=== PATIENT | male | born 1970 | race Caucasian/White ===

== ENCOUNTER 2016-08-04 20:01 | Emergency (ER) | payer SELFPAY ==
[2016-08-04 20:21] VITALS: BMI 35.8
[2016-08-04] MEDS ORDERED: NS 1,000 ML IV ONE (22:16)
[2016-08-04] MEDS ORDERED: Levofloxacin 750 mg/150 ml D5W 750 MG/150 ML RTU IV ONE (22:17)
[2016-08-04] MEDS ORDERED: HYDROmorphone 1 MG INJECTION IV ONE ×2 (22:20→23:19)
--- NOTE | 2016-08-04 22:22 | EDPRACDOC ---
- General Information Chief Complaint: Bleeding (Rectal &/or other) Stated Complaint: RECTAL BLEEDING Time Seen by Provider: 08/04/16 22:13 Mode Of Arrival: Car Home Medications: Home Medications Sertraline HCl [Zoloft] 100 mg PO DAILY 09/18/14 Ibuprofen Tablet [Advil] 800 mg PO Q8H PRN 06/04/16 Lactobacillus Combination No.4 [Probiotic] 1 each PO BID PRN #20 capsule Hydrocodone Bit/Acetaminophen [Lortab 5/325] 1 tab PO Q4-6H PRN #15 tab Levofloxacin [Levaquin] 750 mg PO DAILY #7 tab 06/25/16 Metronidazole [Flagyl] 500 mg PO BID #14 tab 06/25/16 Naproxen Sodium 550 mg PO BID 06/25/16 Ondansetron HCl [Zofran] 4 mg PO Q8H PRN #15 tab 06/25/16 Ciprofloxacin HCl [Cipro] 500 mg PO BID #20 tab 08/04/16 Oxycodone HCl/Acetaminophen [Percocet 5-325 mg Tablet] 1 each PO Q4 #20 tablet 08/04/16 Promethazine [Phenergan] 25 mg PO Q8H PRN #30 tab 08/04/16 Allergies/Adverse Reactions: Allergies Allergy/AdvReac Type Severity Reaction Status Date / Time No Known Allergies Allergy Verified 08/04/16 20:15 - History of Present Illness Onset: a week and a half HPI: PATIENT PRESENTS C/O GENERAL ABDOMINAL PAIN WITH BLOODY STOOL. NO FEVER. NO N/V Pain Location: Reports: Diffuse, LLQ Pain Context: Reports: Spontaneous Pain Severity: Mild Pain Quality: Reports: Aching Pain Radiation: Reports: No Radiation Modifying Factors: improves with: Nothing Oral Intake: Normal Urinary Output: Normal ED Past Medical History - History Reviewed Yes Nurses notes reviewed and agree except as marked Travel Outside of [place] in the Last 3 Months?: No - Patient Medical History Musculoskeletal History: Reports: Arthritis Psychological History: Reports: Depression, Anxiety Systemic History: Reports: Cancer (melanoma) Surgical History: Reports: Cholecystectomy - Family Medical History Reports: Hypertension (Mom and oldest brother), Diabetes (maternal grandmother & Mom), Cancer (Father-small cell lung Ca- Grandmother breast & colon Ca-GF with leukemia) - Social Medical History Smoking Status: Heavy tobacco smoker (5 or more cigarettes/day or daily pipe/ cigar) ETOH: None Substance Abuse: None Lives With: Family Lives In: Home EDM Review of Systems - Review of Systems ROS Negative Except as Marked: Yes All systems reviewed and were negative except as marked Constitutional: No Symptoms Reported. negative: Fever, Chills, Weakness, Fatigue, Loss of Appetite Eyes: No Symptoms Reported. negative: Redness, Blurred Vision, Double Vision, Discharge, Pain, Light Sensitive, Photophobia Ears: No Symptoms Reported. negative: Pain, Hearing Loss, Drainage, Ear Pulling Throat: No Symptoms Reported. negative: Pain, Swelling Nose: No Symptoms Reported. negative: Congestion, Bleeding, Discharge, Injection, Swelling, Deformity, Ecchymosis, Tender, Abrasion, Laceration Mouth: No Symptoms Reported. negative: Pain, Drooling Respiratory: No Symptoms Reported. negative: Cough, Brassy Cough, Barky Cough, Shortness of Breath, Wheezing, Hemoptysis Cardiovascular: No Symptoms Reported. negative: Chest Pain, Palpitations, Syncope, Edema, Orthopnea, PND, Skin Mottling, Cyanosis Gastrointestinal: Pain. negative: Constipation, Diarrhea, Formula Intolerance, Melena, Nausea, Vomiting Genitourinary: No Symptoms Reported. negative: Dysuria, Hematuria, Frequency, Discharge, Bleeding, Testicular Pain, Neurological: No Symptoms Reported. negative: Headache, Dizziness, Seizure, Numbness, Weakness, Speech Difficulty, Gait Difficulty Musculoskeletal: No Symptoms Reported. negative: Neck, Chestwall, Ribs, Back, Shoulder, Arm, Elbow, Forearm, Wrist, Hand, Pelvis, Hip, Femur, Knee, Leg, Ankle , Foot Integumentary: No Symptoms Reported. negative: Itching, Rash, Bruising, Wound Allergic/Immunologic: No Symptoms Reported. negative: Hives, Itching Hematologic: No Symptoms Reported. negative: Lymphadenopathy, Easy Bruising, Easy Bleeding Endocrine: No Symptoms Reported. negative: Weight Gain, Weight Loss Psychiatric: No Symptoms Reported. negative: Anxiety, Depression, Hallucinations, Insomnia, Suicidal - Physical Exam Constitutional: Alert (Awake) Oriented to: Time, Person, Place Last recorded Vital Signs: Last Vital Signs Temp 98.2 F 08/04/16 20:16 Pulse 72 08/04/16 23:41 Resp 18 08/04/16 23:41 BP 141/82 08/04/16 23:41 Pulse Ox 97 08/04/16 23:41 Oxygen Pulse Oxygen Saturation 97 O2 Device Room Air Oxygen Flow Rate Fraction of Inspired Oxygen ( FIO2) - HEENT Head: Normal ( normocephalic) Eye Exam: Normal (PERRL, EOMI, Sclera white) Oropharynx: Normal (Pharynx:Moist without exudate,Gums-no swelling) Tympanic Membrane: Normal ENT EAC: Normal TMJ: Normal Nose: No Symptoms Reported (septum midline) Neck: Normal (FROM, trachea at midline) - Respiratory/Cardiovascular Respiratory: Normal - CTA (BBS clear to auscultation without adventitious sounds ) Cardiovascular: Normal (RRR without murmur, gallop or rub) - GI Auscultation: Normal (NABS) Palpation: Normal (Soft,No rebound or guarding, non distended) Tenderness: Diffuse, Mild Telles's Sign: Negative Rectal Exam: Blood, Heme positive stool. negative: Tarry Stool: Brown - Bladder: Normal - Musculoskeletal Back: Normal (Non-Tender) Extremities: Normal (Normal tone, Pulses 2+ No cyanosis or edema, FROM) - Integumentary Skin: Normal, Warm, Dry Lymphatics: Normal (no adenopathy) - Neurologic Memory Impaired: Normal Motor Function: Normal (Normal tone, Pulses 2+ No cyanosis or edema, FROM) Cranial Nerve: Normal (CN II-X11 intact sensation, strength 5/5) Cerebellar: Normal Mood Description: Normal Perception: Normal - Results 08/04/16 22:40 08/04/16 22:40 WBC 10.2 xk/uL (3.8-10.8) 08/04/16 22:40 RBC 4.73 xM/uL (4.70-6.10) 08/04/16 22:40 Hgb 15.0 g/dL (14.0-18.0) 08/04/16 22:40 Hct 43.6 % (42-52) 08/04/16 22:40 MCV 92 fL (80-94) 08/04/16 22:40 MCH 31.7 pg (27-32) 08/04/16 22:40 MCHC 34.3 g/dl (33-36) 08/04/16 22:40 RDW 14.1 % (11.5-14.5) 08/04/16 22:40 Plt Count 301 xk/uL (130-400) 08/04/16 22:40 MPV 7.6 fL (7.4-10.4) 08/04/16 22:40 Neut % (Auto) 65.1 % (45-76) 08/04/16 22:40 Lymph % (Auto) 23.8 % (17-44) 08/04/16 22:40 Swain % (Auto) 8.6 % (3-10) 08/04/16 22:40 Eos % (Auto) 1.5 % (0-5) 08/04/16 22:40 Baso % (Auto) 1.0 % (0-2) 08/04/16 22:40 Absolute Neuts (auto) 6.63 xk/uL (1.7-8.2) 08/04/16 22:40 Absolute Lymphs (auto) 2.35 xk/uL (0.65-4.75) 08/04/16 22:40 Sodium 138 mEq/L (137-146) 08/04/16 22:40 Potassium 4.0 mEq/L (3.5-5.1) 08/04/16 22:40 Chloride 104 mEq/L (98-107) 08/04/16 22:40 Carbon Dioxide 23 mMOL/L (22-33) 08/04/16 22:40 Anion Gap 15 mEq/L (8-16) 08/04/16 22:40 BUN 17 MG/DL (9-20) 08/04/16 22:40 Creatinine 0.70 MG/DL (0.66-1.25) 08/04/16 22:40 Estimated GFR (MDRD) > 60 mL/min (>=60) 08/04/16 22:40 Glucose 90 MG/DL (70-99) 08/04/16 22:40 Calculated Osmolality 268 MOs/Kg (270-290) L 08/04/16 22:40 Calcium 9.9 MG/DL (8.4-10.2) 08/04/16 22:40 Total Bilirubin 0.9 MG/DL (0.2-1.3) 08/04/16 22:40 AST 27 IU/L (17-59) 08/04/16 22:40 ALT 37 IU/L (21-72) 08/04/16 22:40 Alkaline Phosphatase 85 IU/L (38-126) 08/04/16 22:40 Total Protein 7.6 G/DL (6.3-8.2) 08/04/16 22:40 Albumin 4.7 G/DL (3.5-5.0) 08/04/16 22:40 Lipase 69 U/L (23-300) 08/04/16 22:40 Lab Results 08/04/16 08/04/16 22:40 22:40 WBC 10.2 RBC 4.73 Hgb 15.0 Hct 43.6 MCV 92 MCH 31.7 MCHC 34.3 RDW 14.1 Plt Count 301 MPV 7.6 Neut % (Auto) 65.1 Lymph % (Auto) 23.8 Swain % (Auto) 8.6 Eos % (Auto) 1.5 Baso % (Auto) 1.0 Absolute Neuts (auto) 6.63 Absolute Lymphs (auto) 2.35 Sodium 138 Potassium 4.0 Chloride 104 Carbon Dioxide 23 Anion Gap 15 BUN 17 Creatinine 0.70 Estimated GFR (MDRD) > 60 Glucose 90 Calculated Osmolality 268 L Calcium 9.9 Total Bilirubin 0.9 AST 27 ALT 37 Alkaline Phosphatase 85 Total Protein 7.6 Albumin 4.7 Lipase 69 Decision Time to Discharge: 23:43 - Departure Yes I personally saw and evaluated the patient. Disposition: Home Condition: Good Final Diagnosis: Colitis Instructions: Colitis (ED) Education/Counseling Given To: Patient, Family Member Education/Counseling Given Regarding: Diagnosis, Treatment, Prognosis, Follow Up Referrals: Hammad Mota Jr, [Primary Care Provider] - One Week Tio Segundo MD [Staff Physician] - One Week Prescriptions: Ciprofloxacin HCl [Cipro] 500 mg PO BID #20 tab Oxycodone HCl/Acetaminophen [Percocet 5-325 mg Tablet] 1 each PO Q4 #20 tablet Promethazine [Phenergan] 25 mg PO Q8H PRN #30 tab PRN Reason: Nausea/Vomiting
[2016-08-04] MEDS ORDERED: Pharmacy Review for Metformin - IV Contrast Given SCH (23:00)
[2016-08-04 23:05] LABS: AUTOMATED EOSINOPHIL 1.5 % (0-5); AUTOMATED LYMPH 23.8 % (17-44); AUTOMATED MONOCYTE 8.6 % (3-10); AUTOMATED NEUTROPHIL 65.1 % (45-76); MPV 7.6 fL (7.4-10.4)
[2016-08-04 23:06] LABS: BLOOD UREA NITROGEN 17 MG/DL (9-20); CALCIUM 9.9 MG/DL (8.4-10.2); CALCULATED OSMOLALITY 268 MOs/Kg (270-290); CHLORIDE 104 mEq/L (98-107); GLUCOSE 90 MG/DL (70-99); SODIUM LEVEL 138 mEq/L (137-146); TOTAL PROTEIN 7.6 G/DL (6.3-8.2)
--- NOTE | 2016-08-04 23:36 | DIRPT ---
CLINICAL DATA: 45-year-old male with history of rectal bleeding for the past week and a half. History of melanoma. EXAM: CT ABDOMEN AND PELVIS WITH CONTRAST TECHNIQUE: Multidetector CT imaging of the abdomen and pelvis was performed using the standard protocol following bolus administration of intravenous contrast. CONTRAST: 100 mL of Isovue 370. COMPARISON: CT of the abdomen and pelvis 06/04/2016. FINDINGS: Lower chest: Unremarkable. Hepatobiliary: No cystic or solid hepatic lesions. No intra or extrahepatic biliary ductal dilatation. Status post cholecystectomy. Pancreas: No pancreatic mass. No pancreatic ductal dilatation. No pancreatic or peripancreatic fluid or inflammatory changes. Spleen: Unremarkable. Adrenals/Urinary Tract: Bilateral adrenal glands are normal in appearance. Horseshoe kidney (normal anatomical variant) again noted. No suspicious renal lesions. No hydroureteronephrosis. Urinary bladder is normal in appearance. Stomach/Bowel: The appearance of the stomach is normal. No pathologic dilatation of small bowel or colon. Normal appendix. Vascular/Lymphatic: Minimal atherosclerosis in the abdominal and pelvic vasculature, without evidence of aneurysm or dissection. No lymphadenopathy noted in the abdomen or pelvis. Reproductive: Postoperative changes of right orchiectomy are noted. Prostate gland and seminal vesicles are unremarkable in appearance. Other: No significant volume of ascites. No pneumoperitoneum. Musculoskeletal: There are no aggressive appearing lytic or blastic lesions noted in the visualized portions of the skeleton. IMPRESSION: 1. No acute findings in the abdomen or pelvis to account for the patient's symptoms. 2. Normal appendix. 3. Horseshoe kidney (normal anatomical variant) incidentally noted. 4. Status post cholecystectomy. Electronically Signed By: Harrison Jacinto M.D. On: 08/04/2016 23:33
[2016-08-04] MEDS ORDERED: KETOROLAC TROMETH 30 MG/ML VIAL IV ONE (23:45)
[2016-08-05 03:28] VITALS: BP 138/77; PULSE 71; TEMP 98.6
== END 2016-08-05 00:41 | disposition home or self-care (01) ==
LOC: ED 20:01
DX: K52.9 Noninfective gastroenteritis and colitis, unspecified (principal)
CPT/HCPCS: 36415; 74177; 80053; 82270; 83690; 85025; 96361; 96365; 96366; 96375; 96376; 99284; A9698; J1170; J1885; J1956